=== PATIENT | male | born 1955 | race Caucasian/White ===

== ENCOUNTER 2020-02-17 14:10 | Outpatient (CLI) | payer BC, SELFPAY ==
--- NOTE | ~2020-02-17 | US_ITS ---
EXAMINATION: US arterial ankle brachial ind DATE: 02/17/2020 15:04 INDICATION: Paresthesias of the lower extremities. TECHNIQUE: Segmental pressures and plethysmographic and Doppler waveforms of the brachial and lower e xtremity arteries were obtained. COMPARISON: None. FINDINGS: Right and left brachial artery pressures of 115 mm Hg and 121 mm Hg, respectively, are concordant (no rmal difference <= 30 mmHg). The right ankle-brachial index (JORGE) is 1.35 (normal >= 0.9-1.0). The right great toe-brachial index (TBI) is 1.06 (normal >= 0.65). Arterial Doppler waveforms are biphasic with brisk systolic upstrokes at both the right posterior tibial and dorsalis pedis arteries. The left JORGE is 1.20. The left TBI is 0.90. Arterial Doppler waveforms are biphasic with brisk systol ic upstrokes at both the left posterior tibial and dorsalis pedis arteries. IMPRESSION: 1. No significant arterial occlusive disease to the lower limb with normal bilateral ABIs and TBIs Reviewed, dictated and finalized at location A. IMPRESSION: 1. No significant arterial occlusive disease to the lower limb with normal bila teral ABIs and TBIs
== END 2020-02-17 14:11 | disposition home or self-care (01) ==
PROVIDERS: PCP Internal Medicine; Visit Provider Internal Medicine
DX: R20.2 Paresthesia of skin (principal)
CPT/HCPCS: 93922

== ENCOUNTER 2020-04-10 09:41 | Outpatient (CLI) | payer BC, SELFPAY ==
--- NOTE | 2020-04-10 11:00 | NEURO_ITS ---
Patient Number: [id number] Impression: # Complains of numbness of feet. History of cervical surgery over 20 years ago. # Severe motor and sensory neuropathy with no responses obtained electrically. # Needle/EMG exam revealed no motor unit potentials in bilateral EDB; decreased motor unit potentials in higher muscles. No fibrillations or myotonia. # Clinical correlation recommended. Nerve Conduction Studies Anti Sensory Summary Table Stim Site NR Peak (ms) P-T Amp (?V) Site1 Site2 Delta-P (ms) Dist (cm) Williams (m/s) Left Sup Fibular Anti Sensory (Ant Lat Mall) NO RESPONSE 14 cm NR 14 cm Ant Lat Mall 16.0 Right Sup Fibular Anti Sensory (Ant Lat Mall) NO RESPONSE 14 cm NR 14 cm Ant Lat Mall 16.0 Left Sural Anti Sensory (Lat Mall) NO RESPONSE Calf NR Calf Lat Mall 16.0 Right Sural Anti Sensory (Lat Mall) NO RESPONSE Calf NR Calf Lat Mall 16.0 Motor Summary Table Stim Site NR Onset (ms) O-P Amp (mV) Site1 Site2 Delta-0 (ms) Dist (cm) [place] (m/s) Left Peroneal Motor (Vastus Med) NO RESPONSE Ankle NR Popit Ankle 0.0 Popit NR Right Peroneal Motor (Vastus Med) NO RESPONSE Ankle NR Popit Ankle 0.0 Popit NR Left Tibial Motor (Abd Frazier Brev) NO RESPONSE Ankle NR Knee NR Right Tibial Motor (Abd Frazier Brev) NO RESPONSE Ankle NR Knee Ankle 0.0 Knee NR F Wave Studies NR F-Lat (ms) L-R F-Lat (ms) Left Peroneal (Mrkrs) (EDB) DISPERSED RESPONSE NR Right Peroneal (Mrkrs) (EDB) NO RESPONSE NR Left Tibial (Mrkrs) (Abd Hallucis) DISPERSED RESPONSE NR Right Tibial (Mrkrs) (Abd Hallucis) NO RESPONSE NR EMG Side Muscle Nerve Root Ins Act Fibs Amp Dur Recrt Comment Right AntTibialis Dp Br Fibular L4-5 Nml Nml Nml Nml Nml Right Gastroc Tibial S1-2 Nml Nml Nml Nml Nml Right Fibularis Long Sup Br Fibular L5-S1 Nml Nml Nml Nml Nml Right Flex Dig Long Tibial L5-S2 Nml Nml Nml Nml Nml Right Ext Dig Brev Dp Br Fibular L5, S1 Nml Nml ------ ------ None Left AntTibialis Dp Br Fibular L4-5 Nml Nml Nml Nml Nml Left Gastroc Tibial S1-2 Nml Nml Nml Nml Nml Left Fibularis Long Sup Br Fibular L5-S1 Nml Nml Nml Nml Nml Left Flex Dig Long Tibial L5-S2 Nml Nml Nml Nml Nml Left Ext Dig Brev Dp Br Fibular L5, S1 Nml Nml ------ ------ None Right Ext Dig Long Dp Br Fibular L5-S1 Nml Nml Nml Nml Reduced Right PostTibialis Tibial L5, S1 Nml Nml Nml Nml Reduced Left Ext Dig Long Dp Br Fibular L5-S1 Nml Nml Nml Nml Reduced Left PostTibialis Tibial L5, S1 Nml Nml Nml Nml Reduced MTDD
== END 2020-04-10 09:42 | disposition home or self-care (01) ==
PROVIDERS: PCP Internal Medicine; Visit Provider Internal Medicine
DX: R20.2 Paresthesia of skin (principal)
CPT/HCPCS: 95886; 95910; 95911

== ENCOUNTER 2021-06-26 01:46 | Day surgery (SDC) | payer BC, SELFPAY ==
[2021-05-31 12:32] VITALS: BMI 29.7
--- NOTE | 2021-06-24 12:15 | PC.NURSE ---
SPOKE WITH PT REGARDING INTERVIEW DONE FOR CANCELED PROCEDURE ON 06/12/21. PT DENIES ANY CHANGES IN MEDS OR HEALTH. PT HAS BEEN FEELING GOOD AND WAS SCHED. FOR CARDIOLYTE STRESS TEST ON 06/16/2021, FOLLOW UP ECHO ON 06/21/2021. ZAINAB RECEIVED FROM DR. WILL'S OFFICE FOR COLONOSCOPY AND TO HOLD PLAVIX.
--- NOTE | 2021-06-25 12:57 | PM.HPGS ---
History of Present Illness History of Present Illness Consent: Risks, benefits, and alternatives have been discussed and questions answered. Patient agrees to proceed with procedure. Chief complaint: hx polyps, family hx colon CA Narrative: Edward Casas is a 65 year old male who has a family history of colon cancer. He is referred for colon cancer screening. He did have 1 polyp removed about 5 years ago Review of Systems Review of Systems: All systems reviewed & are unremarkable except as noted in HPI and below PMFSH Past Medical History Medical History CAD (coronary artery disease) HTN (hypertension) Hyperlipidemia LAURA (obstructive sleep apnea) Surgical History Surgical History History of coronary artery stent placement S/P cervical spinal fusion Social History Social History Smoking status: Never smoker Alcohol intake: current Drinks per week: 4 Alcohol use details: WINE Substance use: never Substance use type: does not use Living arrangements: with family Spiritual care concerns: No Meds Home Medications and Allergies Home Medications Medication Instructions Recorded Confirmed Type amlodipine 5 mg PO DAILY 05/31/21 06/26/21 History clopidogrel 75 mg PO DAILY 05/31/21 06/26/21 History escitalopram oxalate 20 mg PO DAILY 05/31/21 06/26/21 History hydroxyzine HCl 25 mg PO TID PRN 05/31/21 06/26/21 History rosuvastatin 40 mg PO DAILY 05/31/21 06/26/21 History Allergies Allergy/AdvReac Type Severity Reaction Status Date / Time No Known Allergies Allergy Unknown Verified 06/26/21 08:50 Exam Resp: Auscultation: clear to auscultation bilaterally Cardio: Rate: regular rate Rhythm: regular rhythm GI: GI Palp: Yes Soft to palpation and No Tenderness to palpation present (GI) Assessment and Plan Assessment and plan (1) Colon cancer screening: Code(s): Z12.11 - Encounter for screening for malignant neoplasm of colon Status: Acute Assessment and Plan: Colonoscopy with possible biopsy or polypectomy or cautery or injection of substances.
[2021-06-26 08:51] VITALS: BP 138/78; PULSE 70; RESP 20; TEMP 36.4; O2SAT 98
[2021-06-26] MEDS: LACTATED RINGERS 1,000 ML 150 ML IV CONT (08:53)
--- NOTE | 2021-06-26 09:14 | P.PNAN_ITS ---
Anes - Initial Pre Proc Eval Procedure: Operation Date: 06/26/21 10:15 Proposed Procedures p Screening Colonoscopy - Augustus Hodge MD Date/Time: 06/26/21 09:14 Surgeon: Augustus Hodge MD Pre Op Diagnosis: hx polyps, family hx colon CA Patient Data Age: 65 Gender: M Height: 1.91 m Weight: 104.6 kg Last Vital Signs Temp 36.4 C 06/26/21 08:51 Pulse 70 06/26/21 08:51 Resp 20 06/26/21 08:51 BP 138/78 06/26/21 08:51 Pulse Ox 98 06/26/21 08:51 Allergies Allergy/AdvReac Type Severity Reaction Status Date / Time No Known Allergies Allergy Unknown Verified 06/26/21 08:50 Home Medications Medication Instructions Recorded Confirmed Type amlodipine 5 mg PO DAILY 05/31/21 06/26/21 History clopidogrel 75 mg PO DAILY 05/31/21 06/26/21 History escitalopram oxalate 20 mg PO DAILY 05/31/21 06/26/21 History hydroxyzine HCl 25 mg PO TID PRN 05/31/21 06/26/21 History rosuvastatin 40 mg PO DAILY 05/31/21 06/26/21 History Patient hx anesthesia problems: none Family hx anesthesia problems: none Results Review: All pre-operative results and documents have been reviewed as part of the pre-operative evaluation. [facility] Past Medical History Medical History (Updated 06/26/21 @ 09:15 by Tavo Abad MD) CAD (coronary artery disease) HTN (hypertension) Hyperlipidemia LAURA (obstructive sleep apnea) Surgical History Surgical History (Updated 06/26/21 @ 09:18 by Tavo Abad MD) History of coronary artery stent placement S/P cervical spinal fusion Social History Social History Smoking status: Never smoker Alcohol intake: current Drinks per week: 4 Alcohol use details: WINE Substance use: never Substance use type: does not use Living arrangements: with family Spiritual care concerns: No Anes - Eval Final PreProcedure Day of Procedure 06/26/21 09:14 Patient weight: overweight Heart: regular rate and rhythm Lungs: clear to auscultation Airway: Mallampati scale class II Neurological: alert and oriented Last oral intake: >/= 8 hours ASA classification: III Anesthetic plan: proceed Anesthesia type and monitoring: general GIVS and standard monitoring Results Review: All pre-operative results and documents have been reviewed as part of the pre-operative evaluation. Informed Consent: The patient's anesthetic plan and its attendant risks and benefits were discussed with the patient/family/POA. Questions were solicited and answers provided to the satisfaction of the patient/family/POA.
[2021-06-26 10:20] VITALS: BP 120/81; PULSE 64; RESP 16; O2SAT 99
[2021-06-26 10:30] VITALS: BP 134/86; PULSE 66; RESP 18; O2SAT 99
[2021-06-26 10:40] VITALS: BP 136/92; PULSE 65; RESP 18; O2SAT 100
== END 2021-06-26 10:56 | disposition home or self-care (01) ==
PROVIDERS: PCP Internal Medicine; Visit Provider Internal Medicine Gastroenterology
PROC: 0DJD8ZZ Inspection of Lower Intestinal Tract, Via Natural or Artificial Opening Endoscopic (ICD-10-PCS; CPT 45378; principal; 2021-06-26 10:15)
DX: Z12.11 Encounter for screening for malignant neoplasm of colon (principal); Z86.010 Personal history of colon polyps; Z80.0 Family history of malignant neoplasm of digestive organs; I25.10 Atherosclerotic heart disease of native coronary artery without angina pectoris; I10 Essential (primary) hypertension; E78.5 Hyperlipidemia, unspecified; G47.33 Obstructive sleep apnea (adult) (pediatric); Z95.5 Presence of coronary angioplasty implant and graft; Z98.1 Arthrodesis status
CPT/HCPCS: 45378; J2704; J7120

== ENCOUNTER → 2021-10-07 08:16 | Outpatient (CLI) | payer BC, SELFPAY ==
--- NOTE | ~2021-10-07 | MR_ITS ---
EXAMINATION: MR lumbar spine wo con DATE: 10/07/2021 08:49 INDICATION: Left-sided sciatica. TECHNIQUE: Magnetic resonance imaging (MRI) of the lumbar spine was performed without intravenous con trast. Sequences included sagittal T2-weighted FSE, sagittal T2-weighted FS FSE, sagittal T1-weighted FSE, and axial T2-weighted FSE. COMPARISON: None FINDINGS: There is 3 mm anterolisthesis of L4 on L5. Vertebral body heights are normal. Intervertebra l disc heights are normal. The distal spinal cord signal intensity is normal. The conus medullaris is at T12. The following disc levels are specifically discussed: L1-L2: The disc is bulging and has an annular fissure. There is mild bilateral facet joint osteoarthr itis. There is mild bilateral neural foraminal stenosis. There is no central canal stenosis. L2-L3: The disc is mildly bulging. There is severe bilateral facet joint osteoarthritis. There is mil d bilateral neural foraminal stenosis. There is no central canal stenosis. L3-L4: The disc is bulging. There is severe bilateral facet joint osteoarthritis. There is mild right and moderate left neural foraminal stenosis. There is mild central canal stenosis. L4-L5: The disc is bulging with superimposed left central extrusion. There is severe bilateral facet joint osteoarthritis. There is moderate bilateral neural foraminal stenosis. There is moderate centra l canal stenosis. L5-S1: The disc does not extend beyond the endplate margin. There is severe right and moderate left f acet joint osteoarthritis. There is mild bilateral neural foraminal stenosis. There is no central can al stenosis. IMPRESSION: 1. Moderate lumbar spondylosis. Reviewed, dictated and finalized at location A.
== END ==
PROVIDERS: PCP Neurological Surgery; Visit Provider Internal Medicine
DX: M54.32 Sciatica, left side (principal); M47.896 Other spondylosis, lumbar region
CPT/HCPCS: 72148

== ENCOUNTER → 2021-10-31 13:51 | Outpatient (CLI) | payer BC, SELFPAY ==
--- NOTE | ~2021-10-31 | XR_ITS ---
EXAMINATION: XR lumbar spine 6V w bending DATE: 10/31/2021 14:56 INDICATION: Low back pain TECHNIQUE: Anteroposterior, lateral in neutral, flexion and extension, and bilateral oblique views of the lumbar spine, and cone-down lateral view of the lumbosacral junction were obtained. COMPARISON: MRI, 10/07/2021 FINDINGS: There are 3 mm of stable anterolisthesis of L4 on L5. There is no laxity with flexion or ex tension. The vertebral body heights are maintained. There is no fracture. The intervertebral disc spa ce heights are normal. There is moderate to severe facet osteoarthritis in the mid and lower lumbar s pine. Calcified atherosclerosis is noted. IMPRESSION: 1. Moderate lumbar spondylosis without acute findings or significant interval change. Reviewed, dictated and finalized at location F. IMPRESSION: 1. Moderate lumbar spondylosis without acute findings or significant interval alva estevez.
== END ==
PROVIDERS: PCP Internal Medicine; Visit Provider Neurological Surgery
DX: M47.896 Other spondylosis, lumbar region (principal)
CPT/HCPCS: 72114

== ENCOUNTER → 2023-07-07 08:15 | Outpatient (CLI) | payer BC, SELFPAY ==
--- NOTE | ~2023-07-07 | CT_ITS ---
EXAMINATION: CT sinus wo con DATE: 07/07/2023 08:30 INDICATION: Chronic sinusitis TECHNIQUE: Computed tomography (CT) of the paranasal sinuses was performed without intravenous contra st. The dose-length product was 412.97 mGy-cm. COMPARISON: None FINDINGS: There is mucosal thickening of the ethmoid, maxillary and sphenoid sinuses. No significant mucoperiosteal reaction. There are changes of surgical resection of the left ostiomeatal unit. No sig nificant nasal septal deviation. Small left mastoid effusion. IMPRESSION: 1. Mild sinusitis. Reviewed, dictated and finalized at location L. APPLICATION CLERK IMPRESSION: 1. Mild sinusitis.
== END ==
PROVIDERS: PCP Internal Medicine; Visit Provider Otolaryngology
DX: J32.9 Chronic sinusitis, unspecified (principal)
CPT/HCPCS: 70486

== ENCOUNTER 2024-11-24 10:07 | Outpatient (CLI) | payer BC, SELFPAY ==
--- NOTE | ~2024-11-24 | MR_ITS ---
MRI of the lumbar spine Clinical History: Left foot drop Technique: Axial T2-weighted images, and sagittal T1-weighted, T2-weighted, and and T2 fat-sat images were acquired. Following intravenous administration of 20 cc ProHance gadolinium, T1-weighted fat-sa t imaging was performed in the axial and sagittal planes. COMPARISON: 10/07/2021 Findings: No acute fracture seen. There is 8 mm anterolisthesis of L4 over L5. No bone marrow signal abnormality seen. At L1-L2, there is minimal disc bulge and moderate facet arthropathy. No central canal stenosis or ne ural foraminal narrowing. At L2-L3, there is no disc bulge or herniation. There is advanced facet arthropathy. No central canal stenosis or neural foraminal narrowing. At L3-L4, there is severe facet arthropathy with minimal disc bulge. No central canal stenosis. There is moderate to advanced left neural foraminal narrowing, and moderate right neural foraminal narrowi ng. At L4-L5, there is disc bulge/uncovering with severe facet arthropathy. No central canal stenosis. Th ere is moderate to severe bilateral neural foraminal narrowing. At L5-S1, there is moderate to advanced facet arthropathy. No central canal stenosis or neural forami nal narrowing. Paravertebral soft tissues are unremarkable. Possible prior posterior decompression at L4. No abnormal postcontrast enhancement identified. Impression: 8 mm anterolisthesis of L4 over L5, with severe degenerative spondylosis at this level. Suspected cecelia or posterior decompression at L4. Additional degenerative changes, as above, with bilateral significant neural foraminal narrowing at L 3-L4 in particular. Reviewed, dictated and finalized at [facility]. Impression: 8 mm anterolisthesis of L4 over L5, with severe degenerative spondylosis at thi s level. Suspected prior posterior decompression at L4. Additional degenerative changes, as above, with bilateral significant neural fo raminal narrowing at L3-L4 in particular.
--- OUTSIDE RECORDS SUMMARY | 2024-11-24 10:16 | XMS_ITS | Data Portability ---
Author Organization [facility] Address [address] [place] [address] Assessment No assessment recorded. Plan of Treatment Reminders Order Date Submit Date Provider Last Modified By Organization Details Last Modified Time Details Appointments None recorded. 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 sebree 145 2019 020 [facility] ([facility]), [address] [place], [address], 0 12:20:58 Referral None recorded. Procedures None recorded. Surgeries None recorded. Imaging None recorded. Medication Orders None recorded. Patient TargetsNo targets recorded. Patient Instructions Encounter Date Encounter Id Patient Instructions Last Modified By Organization Details Last Modified Time 02/29/2020 [id number] Reviewed the following recommendations: -Stay home and separate from others as much as possible. -Monitor your symptoms and seek medical attention for trouble breathing, persistent chest pain, confusion, or bluish lips or face. -Wear a mask if you must be around other people. -Wash your hands often for 20 seconds with soap and water and clean high-touch surfaces daily -You may discontinue home isolation if your symptoms are improving and it has been 10 days since symptoms started. [email or web address] Not available 02/29/2020 12:59:56 Reason for Referral None Reported. Results Created Date Observation Date Name Description Value Unit Range Abnormal Flag Note LastModifiedBy Organization Detail LastModifiedTime 02/29/20 20 02/29/2020 SARS CoV 2 RNA (COVI D-19) , QL, telegraph office manager-P CR, respi rator y speci men sars - cov - 2 PCR NEGATI VE mL Not Available [facility] (Lab) [address] [facility], [place], [address], 03/02/2020 12:20:58 02/29/20 20 02/29/2020 SARS CoV 2 RNA (COVI D-19) , QL, telegraph office manager-P CR, respi rator y speci men covidcom1 COMME NTS: This assay is desig kyler to detec t the RdRp and N genes of SARS- CoV-2 using nucle ic acid ampli ficat ion. A negat balta resul t does not precl ude the possi bilit y of 2019- nCoV infec tion since the adequ acy of sampl e colle ction and/o r low viral burde n may resul t in the prese nce of viral nucle ic acids level s below the maryjo tical sensi tivit y of this test metho d. Not Available [facility] (Lab) [address] [facility], [place], [address], 03/02/2020 12:20:58 02/29/20 20 02/29/2020 SARS CoV 2 RNA (COVI D-19) , QL, telegraph office manager-P CR, respi rator y speci men covidcom2 Posit balta resul ts are indic ative of the prese nce of SARS- CoV-2 RNA and do not rule out bacte rial infec tion or co-in fecti on with other virus es. Not Available [facility] (Lab) [address] [facility], [place], [address], 03/02/2020 12:20:58 02/29/2002/29/2020 SARS CoV 2 RNA (COVI D-19) , QL, telegraph office manager-P CR, respi rator y speci men covidcom3 Test resul ts shoul d be used along with other clini shavon obser vatio ns, patie nt histo ry, epide miolo gical infor matio n and labor atory data in makin g the diagn osis. Not Available [facility] (Lab) [address] [facility], [place], [address], 03/02/2020 12:20:58 02/29/20 20 02/29/2020 SARS CoV 2 RNA (COVI D-19) , QL, telegraph office manager-P CR, respi rator y speci men covidcom4 This test has recei christa FDA Emerg ency Use Autho rizat ion and has been verif ied by [facility] . This test is only autho rized for the durat ion of the decla ratio n and the circu mstan reji that exist to justi fy the autho rizat ion of the emerg ency use of in vitro diagn ostic tests for the detec tion of SARS- CoV-2 virus and/o r diagn osis of COVID -19 infec tion under secti on 564 (b) (1) of the Act. 11 U.S.C . 360bb b-3 (b) (1), unles s the autho rizat ion is termi nated or revok ed soone r. Not Available [facility] (Lab) [address] [place], [address], 03/02/2020 12:20:58 02/29/20 20 02/29/2020 SARS CoV 2 RNA (COVI D-19) , QL, telegraph office manager-P CR, respi rator y speci men covidcom5 [facility] is certi fied under CLIA- 88 as quali fied to perfo rm high compl exity testi ng. This testi ng was perfo rmed in the [facility] [place] [address] (CLIA Licen se #[id number] 5, CAP #[id number], AU-ID #[id number]). Not Available [facility] (Lab) [address] [place], [address], 03/02/2020 12:20:58 02/29/20 20 02/29/2020 SARS CoV 2 RNA (COVI D-19) , QL, telegraph office manager-P CR, respi rator y speci men covidcom6 Facts heet for healt hcare provi ders: https ://ww w.fda .gov/ media /1362 56/do wnloa d Facts heet for jimi nts: https ://ww [employer].fda .gov/ media /1362 57/do wnloa d Not Available [facility] (Lab) [address] [place], [address], 03/02/2020 12:20:58 Result Notes None recorded. Medical Equipment None Reported. Medications Name Sig Start Date Stop Date Status Note LastModified by Organization Details LastModified Time clopidogrel 75 mg tablet active Not Available Not Available No t Available amlodipine 5 mg tablet active Not Available Not Available Not Available diazepam 5 mg tablet active Not Available Not Available Not Available hydroxyzine pamoate 25 mg capsule active Not Available Not Available Not Available escitalopram 10 mg tablet active Not Available Not Available No t Available escitalopram 20 mg tablet active Not Available Not Available No t Available rosuvastatin 20 mg tablet active Not Available Not Available No t Available Boostrix Tdap 2.5 Lf unit-8 mcg-5 Lf/0.5 mL intramuscular syringe active Not Available Not Available Not Available Shingrix (PF) 50 mcg/0.5 mL intramuscular suspension, kit active Not Available Not Availa ble Not Available Vitals None Recorded Social History None recorded. Functional Status None recorded. Mental Status None recorded. Family History Nothing Reported. Medical History No medical history recorded. Past Encounters Encounter ID Performer Location Encounter Start Date Encounter Closed Date Diagnosis/Indication Diagnosis SNOMED-CT Code Diagnosis ICD10 Code Diagnosis Note [id number] MARGUERITE Mehta [address] [place] [address] 02/29/2020 10:38:09 03/01/2020 09:57:24 Suspected COVID-19 [id number] Z03.818 D/w pt the current pandemic of COVID-19 and call for social isolation in order to blunt the curve and minimize risk and spread. Encouraged patient and family to take restrictio ns seriously. They have verbalized understand ing of such. Viral syndrome [id number] B34.9 Health Concerns Section Related Observation LastModified by Organization Detai ls LastModified Time None Recorded Concern Status LastModified by Organization Details LastModified Time None Recorded Advance Directives Directive None Recorded Payers Encounter Date Sequence Insurance Name Policy Number Policy [place] Covered Member ID [place] Member ID Guarantor Name 02/29/2020 1 [facility] [id number] Edward Casas [id number] Edward Casas Notes Date Note Type Note Provider Name and Address Organization Details Recorded Time 02/29/2020 text/html COVID ScreeningReported bypatient.Associated Symptoms:shortness of breathCOVID-19 Symptoms November 2019Reported bypatient.COVID-19 Signs and Symptomscough resolved; cough same; fever resolved; shortness of breath resolved; chills resolved; repeated shaking with chills resolved; muscle pain resolved; headache resolved; sore throat resolved; loss of taste or smell resolved; vomiting or diarrhea resolved; fatigue resolved; anorexia resolved Contacts and Exposurereside in or traveled to areas where widespread community transmission has been reported Quality:dry cough Associated Symptoms:no sputum production; no wheezing; no runny nose; no vomiting; no diarrhea; no body aches; no nausea; no change in mental status; no hypotension; no tachycardia 64 yo male ,spoke via phone with C/O, SOB, lung pressure, congestion, potential exposure to pos COVID person recent travel. TREVON Corado NP Attn: Accounting,[address] [facility], [place], [address], [place] - [facility] 02/29/2020 13:00:28
--- OUTSIDE RECORDS SUMMARY | 2024-11-24 10:16 | XMS_ITS | Referral Summary ---
Author Organization [facility] Address [address] [place] [address] Care Team Providers Care Tobacco Sieve Operator Name Role Phone Tosha Herrera NP Primary Care Provider Arvind Livingston MD Unavailable [phone] Darren Tafoya MD Unavailable Encounters Date Type Department Care Team Description 08/31/2024 4:00 PM BLOOD BANK TECHNICIAN Office Visit [facility] Care at [address] [address] Kait Staley NP Sore throat (Primary Dx); Acute cough from Last 3 Months Allergies No known active allergies Medications aspirin (ASPIR-81) 81 mg tablet take 1 tablet (81MG) by oral route every day 0 07/24/19 12 Active Additional Information Patient not taking.Reported on 08/31/2024 ondansetron ODT (ZOFRAN-ODT) 4 mg disintegrating tablet Dissolve 1-2 tablets oral every 8 hours as needed for nausea or vomiting. 15 tablet 08/19/19 20 Active Additional Information Patient not taking.Reported on 08/31/2024 albuterol HFA (PROVENTIL HFA,VENTOLIN HFA,PROAIR HFA) 90 mcg/actuation inhaler INHALE 2 PUFFS EVERY 8 HOURS BY INHALATION ROUTE NEEDED FOR 10 DAYS. Active etodolac (LODINE) 400 mg tablet Take 1 tablet twice a day by oral route. Active HYDROcodone-acetam inophen (NORCO) 7.5-325 mg per tablet Take 1 tablet by mouth every 4 (four) hours as needed Active ketoconazole (NIZORAL) 2 % cream Active methylPREDNISolone acetate (DEPO-MedroL) 80 mg/mL injection Take 1 mL by injection route. 04/23/20 23 Active montelukast (SINGULAIR) 10 mg tablet Take 1 tablet (10 mg total) by mouth daily Active promethazine-DM (PROMETHAZINE-DM) 1.25-3 mg/mL syrup TAKE 5 ML EVERY 4 HOURS BY ORAL ROUTE FOR 10 DAYS. Active hydrOXYzine (VISTARIL) 25 mg capsule Take 1 capsule (25 mg total) by mouth 3 (three) times a day as needed for anxiety 30 capsule 02/11/20 24 Active amLODIPine (NORVASC) 5 mg tablet Take 1 tablet (5 mg total) by mouth daily 90 tablet 3 07/26/19 25 Active clopidogreL (PLAVIX) 75 mg tablet Take 1 tablet (75 mg total) by mouth daily 90 tablet 3 07/26/19 25 Active escitalopram (LEXAPRO) 20 mg tablet Take 1 tablet (20 mg total) by mouth daily 90 tablet 3 07/26/19 25 Active rosuvastatin (CRESTOR) 20 mg tablet Take 1 tablet (20 mg total) by mouth daily 90 tablet 3 07/26/19 25 Active lidocaine viscous (XYLOCAINE) 2 % solution Apply 10 mL to the mouth or throat every 6 (six) hours as needed (sore throat) May mix with 30 ml of Mylanta 100 mL 08/31/19 25 Active Active Problems Problem Noted Date Diagnosed Date Anxiety 11/06/2023 Assessment & Plan (07/26/2024 11:34 AM BLOOD BANK TECHNICIAN): Stable on Lexapro and Hydroxyzine prn. Assessment & Plan (11/06/2023 8:57 AM CDT): Stable on Lexapro and Hydroxyzine prn. Dyslipidemia 11/06/2023 Essential hypertension 11/06/2023 Assessment & Plan (07/26/2024 11:34 AM BLOOD BANK TECHNICIAN): BP normal in office, continuing Amlodipine 5 mg daily. Updated labs ordered. Injury of cervical spine 11/06/2023 Insomnia 11/06/2023 Sleep apnea 11/06/2023 Chronic maxillary sinusitis 07/15/2023 Chronic sphenoidal sinusitis 07/15/2023 Acute bronchitis 07/07/2023 Bilateral chronic serous otitis media 06/23/2023 Chronic cough 06/23/2023 Bronchitis 04/23/2023 COVID-19 09/23/2022 Chronic ethmoidal sinusitis 09/24/2021 Assessment & Plan (11/06/2023 8:57 AM CDT): Had surgery with Dr Livingston (ENT), symptoms seem to be improving. Hyperlipidemia 09/24/2021 Sciatica 09/24/2021 Coronary arteriosclerosis 09/20/2019 Overview (11/06/2023): stent Assessment & Plan (07/26/2024 11:34 AM BLOOD BANK TECHNICIAN): Has hx of stent, currently following with Dr Tafoya (cardio). Continuing Plavix, Crestor and follow up with Cardio Assessment & Plan (11/06/2023 8:56 AM CDT): Has hx of stent, currently following with Dr Tafoya (cardio). Continuing Plavix, Crestor and follow up with Cardio Immunizations Immunization Administration Dates Next Due Influenza, Quad, Adjuvantate d, Intramuscular 03/28/2023 Influenza, Quadrivalent, Hig h Dose, Preservative Free, Intrr 03/10/2022 Influenza, Quadrivalent, Spl it, Intramuscular 03/01/2020,05/17/2018 Influenza, Quadrivalent, Spl it, Preservative Free, Intramuscular 03/19/2021,06/21/2015 Influenza, Trivalent, High D ose, Split, Preservative Free, Intramuscular 04/02/2024 Influenza, Unspecified 04/24/2014 Pfizer SARS-CoV-2 Monovalent Vaccination (12+ Yrs) PURPLE 06/23/2021,10/03/2020,09/11/2020 Pneumococcal Conjugate Pcv20 03/10/2022 Tdap 07/08/2022,02/06/2020 ZOSTER Recombinant 07/17/2019,03/24/2019 Zoster, unspecified 07/17/2019,03/24/2019 Social History Tobacco Use Types Packs/Day Years Used Date Smoking Tobacco: Never Smokeless Tobacco: Never Tobacco Cessation:Counseling Given: Not Answered Alcohol Use Standard Drinks/Week Comments Yes 3 (1 standard drink = 0.6 oz pur e alcohol) PHQ-2 Answer Date Recorded PHQ-2 Total Score (If total score is 3 or more points, staff should administer the PHQ-9) 0 07/26/2024 Sex and Gender Information Value Date Recorded Sex Assigned at Not on file Legal Sex Male 2:12 AM BLOOD BANK TECHNICIAN Gender Identity Not on file Sexual Orientation Not on file Last Filed Vital Signs Vital Sign Reading Time Taken Comments Blood Pressure 128/76 08/31/2024 3:51 PM BLOOD BANK TECHNICIAN Pulse 80 08/31/2024 3:51 PM BLOOD BANK TECHNICIAN Temperature 36.7 C (98.1 F) 08/31/2024 3:51 PM BLOOD BANK TECHNICIAN Respiratory Rate 28 08/31/2024 3:51 PM BLOOD BANK TECHNICIAN Oxygen Saturation 98% 08/31/2024 3:51 PM BLOOD BANK TECHNICIAN Inhaled Oxygen Concentration - - Weight 114.3 kg (252 lb) 08/31/2024 3:51 PM BLOOD BANK TECHNICIAN Height 190.5 cm (6' 3 ) 07/26/2024 11:03 AM BLOOD BANK TECHNICIAN Body Mass Index 31.5 07/26/2024 11:03 AM BLOOD BANK TECHNICIAN Plan of Treatment Not on file Medical Devices Implanted Type Area Actuarial Mathematician Device Identifier Shelf Expiration Date Model / Serial / Lot [employer] [id number] System Coronary Stent Xience Janey Everolimus L15 Mm Od3 Mm Rapid Exchange - [id number] Implanted:Qty: 1 on 05/05/2019 by Darren Tafoya MD at [facility] [employer] 02/02/2020 [id number] / [id number] [employer] [id number] Device Closure Angio-Seal Vip Bondek-Plus Polyglyd L70 Cm Od6 Fr Odsec.035 In Vascular - [id number] Implanted:Qty: 1 on 05/05/2019 by Darren Tafoya MD at [facility] [employer] 11/10/2019 [id number] / / [id number] Procedures Procedure Name Priority Date/Time Associated Diagnosis Comments POC INFLUENZA A/B, COVID-19 ANTIGEN Routine 08/31/2024 4:12 PM BLOOD BANK TECHNICIAN Sore throat POCT RAPID STREP Routine 08/31/2024 3:54 PM BLOOD BANK TECHNICIAN Sore throat HEPATITIS C ANTIBODY Routine 11/06/2023 8:58 AM CDT Encounter for hepatitis C screening test for low risk patient PSA SCREEN Routine 11/06/2023 8:58 AM CDT Screening PSA (prostate specific antigen) from Last 3 Months or Most Recently Relevant to Health Maintenance Results * POC Influenza A/B, COVID-19 antigen (08/31/2024 4:12 PM BLOOD BANK TECHNICIAN) Influenza A Ag, POC Negative Negative [facility] Influenza B Ag, POC Negative Negative [facility] COVID-19 Ag POC Presumptive Negative Presumptive Negative, Invalid [facility] Nasal 08/31/2024 4:12 PM BLOOD BANK TECHNICIAN Kait Staley NP POINT OF CARE TEST ORDERAB LES Final Result Performing Organization Address City/State/[facility] Co de Phone Number [facility] [address] [place] [address] * POCT rapid strep A (08/31/2024 3:54 PM BLOOD BANK TECHNICIAN) Pathologist [facility] Rapid Strep A, POC Negative Negative Swab 08/31/2024 3:54 PM BLOOD BANK TECHNICIAN Kait Staley NP POINT OF CARE TEST ORDERAB LES Final Result * PSA screen (11/06/2023 8:58 AM CDT) PSA-Total 3.19 <=5.40 ng/mL Comment: Interpretive Data AGE SEX REFERENCE INTERVAL 0 minutes-150 years Female None 0 minutes-49 years Male None 50-59 years Male 0-3.90 60-69 years Male 0-5.40 70-79 years Male 0-6.20 80-150 years Male 0-6.20 The Savita PSA Total assay procedure was used. Results from different manufacturers or methods may not be comparable. Serial testing should be performed using the same method. Current interpretive data last revised 21. Blood 11/06/2023 8:58 AM CDT 11/06/2023 1:57 PM CDT us Tosha Herrera NP LAB BLOOD ORDERABLES Final Resul t Performing Organization Address [facility] de Phone Number [facility] [address] [place] [address] * Hepatitis C antibody Blood (11/06/2023 8:58 AM CDT) Hep C Ab Nonreactive Nonreactive Comment: Interpretive Data Nonreactive: Antibodies to HCV not detected. Does NOT exclude the possibility of recent exposure to HCV. Equivocal: Equivocal for HCV antibodies. Supplemental molecular testing will be automatically performed to determine infection status in accordance with current CDC screening recommendations. Reactive: Positive for HCV antibodies. This may represent current or past HCV infection. Supplemental molecular testing will be automatically performed to determine current infection status in accordance with current CDC screening recommendations. Interpretive data was last revised on 2019. Blood 11/06/2023 8:58 AM CDT 11/06/2023 1:57 PM CDT us Tosha Herrera NP LAB MICROBIOLOGY - GENERAL ORDER LIBBY Edited Result - Final Performing Organization Address [facility] de Phone Number [facility] [address] [facility] [place] [address] from Last 3 Months or Most Recently Relevant to Health Maintenance Insurance [employer] ACCESS ANTHEM ACCESS Advance Directives For more information, please contact: [phone] * Full Code (Latest Code Status on File) Date Activated Date Inactivated Comments 05/05/2019 9:40 AM 05/06/2019 3:28 PM Care Teams Tobacco Sieve Operator Relationship Specialty Start Date End Date Tosha Herrera NP [address] [facility] [address] [place] [address] PCP - General Family Medicine 11/06/23 Arvind Livingston MD [address] [place] [address] Consulting Physician Otolaryngology 11/06/23 [place] [address] [place] [address] Consulting Physician Cardiovascular Disease 11/06/23
--- OUTSIDE RECORDS SUMMARY | 2024-11-24 10:16 | XMS_ITS | Clinical Summary ---
Author Organization [facility] Address [address] [place] [address] Care Team Providers Care Supervisor Of Communications Name Role Phone Unavailable Primary Care Provider Unavailabl e Social History Tobacco Use Types Packs/Day Years Used Date Smoking Tobacco: Never Assessed Sex and Gender Information Value Date Recorded Sex Assigned at Not on file Legal Sex Male 11:36 AM CDT Gender Identity Not on file Sexual Orientation Not on file Plan of Treatment Health Maintenance Due Date Last Done Comments Pre-Diabetes and Diabetes Screening 1955 COLORECTAL SCREENING 2001 Colorectal Cancer Screening 2001 FIT-DNA Q 3 years 2001 FIT/FOBT Q 1 year 2001 Flex Sig/CT Colonography Q 5 years 2001 COVID-19 Vaccine (2023-2 5 season) 2024 06/23/2021, 10/03/2020, 09/11/2020 RSV VACCINE (60+ or ) (1 - 1-dose 75+ series) 12/09/2031 DTAP/TDAP/TD VACCINES (3 - T d or Tdap) 07/08/2032 07/08/2022, 02/06/2020 ZOSTER VACCINE Completed 07/17/2019, 03/24/2019 PNEUMOCOCCAL VACCINE 50+ YEARS Completed 03/10/2022 INFLUENZA VACCINE Completed 04/02/2024, , 03/10/2022, Additional history exists Insurance [facility] BLUE ACCESS CHOICE [facility]
--- OUTSIDE RECORDS SUMMARY | 2024-11-24 10:16 | XMS_ITS | Clinical Summary ---
Author Organization [facility] Address [address] [place] [address] Care Team Providers Care Director Of Pupil Personnel Program Name Role Phone Tosha Herrera NP Primary Care Provider [phone] Arvind Livingston MD Unavailable [phone] Darren Tafoya MD Unavailable Allergies No known active allergies Medications aspirin [...] 11/06/2023 Assessment & Plan (07/26/2024 11:34 AM SALES STRATEGY MANAGER): Stable on Lexapro and Hydroxyzine prn. Assessment & Plan (11/06/2023 8:57 AM CDT): Stable on Lexapro and Hydroxyzine prn. Dyslipidemia 11/06/2023 Essential hypertension 11/06/2023 Assessment & Plan (07/26/2024 11:34 AM SALES STRATEGY MANAGER): BP normal in office, continuing Amlodipine 5 [...] stent Assessment & Plan (07/26/2024 11:34 AM SALES STRATEGY MANAGER): Has hx of stent, currently following with Dr Tafoya (cardio). Continuing Plavix, Crestor and follow up with Cardio Assessment & Plan (11/06/2023 8:56 AM CDT): Has hx of stent, currently following with Dr Tafoya (cardio). Continuing Plavix, Crestor and follow up with Cardio Encounters Date Type Department Care Team Description 08/31/2024 4:00 PM SALES STRATEGY MANAGER Office Visit [facility] at [address] [address] Kait Staley, MARGUERITE Sore throat (Primary Dx); Acute cough from Last 3 Months Immunizations Immunization Administration Dates Next Due Influenza, [...] 07/08/2022,02/06/2020 ZOSTER Recombinant 07/17/2019,03/24/2019 Zoster, unspecified 07/17/2019,03/24/2019 Surgical History Surgery Date Site/Laterality Comments OTHER SURGICAL HISTORY C3-C7 spinal herniated disk: surgery SPINE SURGERY VASECTOMY SINUS SURGERY CARDIAC STENT PLACEMENT 3-4 years ago Medical History Medical History Date Comments Hx Other Medical 2007 C3-C7 spinal he rniated disk Hypertension Hypertension Anxiety disorder Anxiety Sleep apnea Hyperlipidemia GERD (gastroesophageal reflux disease) Coronary artery disease Hyperlipidemia Family History Medical History Relation Name Comments Coronary artery disease Father Alicia sanchez artery disease; /Coronary artery disease, premature; Cause of : Coronary artery disease, premature Other Mother Cancer -rectal; Cause of : Cancer -rectak Relation Name Status Comments Father (Age 55) Mother Social History Tobacco Use Types Packs/Day Years [...] on file Legal Sex Male 2:12 AM SALES STRATEGY MANAGER Gender Identity Not on file Sexual Orientation Not on file Obstetrics History Last Filed Vital Signs Vital Sign Reading Time Taken Comments Blood Pressure 128/76 08/31/2024 3:51 PM SALES STRATEGY MANAGER Pulse 80 08/31/2024 3:51 PM SALES STRATEGY MANAGER Temperature 36.7 C (98.1 F) 08/31/2024 3:51 PM SALES STRATEGY MANAGER Respiratory Rate 28 08/31/2024 3:51 PM SALES STRATEGY MANAGER Oxygen Saturation 98% 08/31/2024 3:51 PM SALES STRATEGY MANAGER Inhaled Oxygen Concentration - - Weight 114.3 kg (252 lb) 08/31/2024 3:51 PM SALES STRATEGY MANAGER Height 190.5 cm (6' 3 ) 07/26/2024 11:03 AM SALES STRATEGY MANAGER Body Mass Index 31.5 07/26/2024 11:03 AM SALES STRATEGY MANAGER Plan of Treatment Health Maintenance Due Date Last Done Comments Hepatitis B Screening 1973 Covid-19 Vaccine (2023-2 5 season) 2024 04/02/2024, 03/28/2023, 05/31/2022, Additional history exists Well Visit 65+ 11/05/2024 11/06/2023 Depression Screening 07/26/2025 07/26/2024, 11/06/19 24 Fall Risk Assessment 07/26/2025 07/26/2024, 11/06/19 Prostate Cancer Screening-PSA 11/05/2025 11/06/2023 Colon Cancer Screening-Colonoscopy 11/05/20262021 DTaP/Tdap/Td Vaccine (3 - Td or Tdap) 07/08/2032 07/08/2022, 02/06/2020 Zoster Vaccine Completed 07/17/2019, 11/2019, 03/24/2019, Additional history exists Pneumococcal vaccine 65+ Completed 03/10/2022 Hepatitis C Screening Completed 11/06/2023 Influenza Vaccine Completed 04/02/2024, , 03/10/2022, Additional history exists Medical Devices Implanted Type Area Tool Supervisor Device Identifier Shelf Expiration Date Model / Serial / Lot [employer] [id number] System Coronary Stent Xience Janey Everolimus L15 Mm Od3 Mm Rapid Exchange - [id number] Implanted:Qty: 1 on 05/05/2019 by Darren Tafoya MD at [facility] [employer] 02/02/2020 [id number] Device Closure Angio-Seal Vip Bondek-Plus Polyglyd L70 Cm Od6 Fr Odsec.035 In Vascular - [id number] Implanted:Qty: 1 on 05/05/2019 by Darren Tafoya MD at [facility] [employer] 11/10/2019 [id number] / / [id number] Procedures Procedure Name Priority Date/Time Associated Diagnosis Comments POC INFLUENZA A/B, COVID-19 ANTIGEN Routine 08/31/2024 4:12 PM SALES STRATEGY MANAGER Sore throat POCT RAPID STREP Routine 08/31/2024 3:54 PM SALES STRATEGY MANAGER Sore throat HEPATITIS C ANTIBODY Routine 11/06/2023 8:58 AM CDT Encounter for hepatitis C screening test for low risk patient PSA SCREEN Routine 11/06/2023 8:58 AM CDT Screening PSA (prostate specific antigen) from Last 3 Months or Most Recently Relevant to Health Maintenance Results * POC Influenza A/B, COVID-19 antigen (08/31/2024 4:12 PM SALES STRATEGY MANAGER) Influenza A Ag, POC Negative Negative [facility] Influenza B Ag, POC Negative Negative [facility] COVID-19 Ag POC Presumptive Negative Presumptive Negative, Invalid [facility] Nasal 08/31/2024 4:12 PM SALES STRATEGY MANAGER Kait Staley NP POINT OF CARE TEST ORDERAB LES Final Result Performing Organization Address [facility] Co de Phone Number [facility] [address] [place] [address] * POCT rapid strep A (08/31/2024 3:54 PM SALES STRATEGY MANAGER) Pathologist [facility] Rapid Strep A, POC Negative Negative Swab 08/31/2024 3:54 PM SALES STRATEGY MANAGER Kait Staley NP POINT OF CARE TEST ORDERAB LES Final Result * PSA screen (11/06/2023 8:58 AM CDT) Pathologist [facility] PSA-Total 3.19 <=5.40 ng/mL Comment: Interpretive Data [...] 8:58 AM CDT 11/06/2023 1:57 PM CDT Tosha Herrera CHANGE OVER LAB BLOOD ORDERABLES Final Resul t [facility] [address] [place] [address] * Hepatitis C antibody Blood (11/06/2023 8:58 [...] 8:58 AM CDT 11/06/2023 1:57 PM CDT Tosha Herrera NP LAB MICROBIOLOGY - GENERAL ORDER LIBBY Edited Result - Final [facility] [address] Department [place] [address] from Last 3 Months or Most Recently Relevant to Health Maintenance Insurance [employer] ACCESS ANTHEM ACCESS Advance Directives For more information, please contact: [phone] * Full Code (Latest Code Status on File) Date Activated Date Inactivated Comments 05/05/2019 9:40 AM 05/06/2019 3:28 PM Care Teams Director Of Pupil Personnel Program Relationship Specialty Start Date End Date Tosha Herrera NP [address] [facility] [address] [place], [place] [id number] PCP - General Family Medicine 11/06/23 Arvind Livingston MD [address] [place] [address] Consulting Physician Otolaryngology 11/06/23 [place] [address] [facility] [address] [place] [address] Consulting Physician Cardiovascular Disease 11/06/23
--- OUTSIDE RECORDS SUMMARY | 2024-11-24 10:17 | XMS_ITS | Clinical Summary ---
Author Organization [facility] Address [address] [place] [place] [address] Care Team Providers Care General Farmer Name Role Phone Unavailable Primary Care Provider Unavailabl e Source Comments [facility],non-owned Affiliates and Associated Physician Practices is amultiple site organization consisting of ambulatory clinics and hospital sitesin [place], [place], [place] and [place]. This disclosure is being madepursuant to the Care Everywhere program and may not contain all information available regarding this patient. Last updated 18.[facility] [employer] Social History Tobacco Use Types Packs/Day Years Used Date Smoking Tobacco: Never Assessed Sex and Gender Information Value Date Recorded Sex Assigned at Not on file Legal Sex Male 6:35 AM BUFFING WHEEL FORMER AUTOMATIC Gender Identity Not on file Sexual Orientation Not on file Last Filed Vital Signs Vital Sign Reading Time Taken Comments Blood Pressure 122/84 02/12/2017 8:40 AM CDT Pulse 73 02/12/2017 8:40 AM CDT Temperature 36.4 C (97.6 F) 02/03/2017 7:10 PM CDT Respiratory Rate 12 02/03/2017 8:30 PM CDT Oxygen Saturation 93% 02/03/2017 8:30 PM CDT Inhaled Oxygen Concentration - - Weight 98.4 kg (217 lb) 02/12/2017 8:40 AM CDT Height 190.5 cm (6' 3 ) 02/12/2017 8:40 AM CDT Body Mass Index 27.12 02/12/2017 8:40 AM CDT Plan of Treatment Health Maintenance Due Date Last Done Comments COLOGUARD (AGES 45-75) - COL ON CA SCREENING 1956 COLON MONITORING 1956 COLONOSCOPY - COLON CA SCREENING 1956 CT COLONOGRAPHY - COLON CA SCREENING 1955 Colorectal Cancer Screening 1955 FIT - COLON CA SCREENING 1956 FLEX SIG - COLON CA SCREENING 1956 LIPID TESTING 1955 HEPATITIS C SCREENING 12/04/1974 DTAP/TDAP/TD VACCINES (1 - Tdap) 12/09/1975 PNEUMOCOCCAL VACCINE 50+ (1 of 1 - PCV) 2006 ZOSTER VACCINE (1 of 2) 2006 COVID-19 VACCINE (1 - 2023-2 5 season) 2024 DEPRESSION SCREENING 07/13/2024 INFLUENZA VACCINE (Season Ended) 2025 Respiratory Syncytial Virus (RSV) Vaccine Pt: or over 60 yrs (1 - 1-dose 75+ series) 12/09/2031 HEPATITIS B VACCINE Aged Out No longe r eligible based on patient's age to complete this topic HIB VACCINE Aged Out No longer eligi ble based on patient's age to complete this topic HPV VACCINE Aged Out No longer eligi ble based on patient's age to complete this topic MENINGOCOCCAL (Group B) VACC INE SHARED DECISION-MAKING Aged Out No longer eligibl e based on patient's age to complete this topic MENINGOCOCCAL GROUPS A/C/Y/W VACCINE Aged Out No longer eligible b ased on patient's age to complete this topic
--- OUTSIDE RECORDS SUMMARY | 2024-11-24 10:17 | XMS_ITS | Data Portability ---
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 split sleep study 05/23/18 sleep onset = 32 minutes, REM onset = 86 minutes, AHI = 41, supine AHI = 69, Respironics small DreamWear gel nasal pillows @ 12 cmH2O, PLMI = 21 Elevation in periodic limb movement index may be contributed by escitalopram and hydroxyzine. Non-pharmacologic therapy options for periodic limb movement disorder include avoidance of aggravating drugs and substances, mental alerting activities, short daily hemodialysis for patients in renal failure, exercise, leg massage, stretching calf muscles, use of a weighted blanket and applied heat. Patient will cut down on alcohol consumption and caffeine intake. We will check BUN, Creatinine, Vitamin E, Vitamin B12, RBC folate, Iron, TIBC, Ferritin, ESR, Magnesium, Hgb and Hct levels. PAP compliance downloaded and interpreted x 20 minutes. Data reviewed and explained to the patient. Average apnea/hypopnea index (AHI) is 3.5. Patient used PAP > 4 hours 79% of the time. PAP is set at 12 cmH2O. PAP will be reset at 6-12 cmH2O. Oxygen supplementation: none Keep ramp start @ 6 cmH2O. Keep ramp duration @ 15 minutes. Keep EPR +2. Keep humidifier level @ 4. Patient is benefiting from PAP therapy. Encouraged patient to maintain PAP use more than 70% of the time. Statement of PAP use and benefits will be sent to the home care store. Educated the patient on problems and solutions associated with positive airway pressure (PAP) use. Difficulty tolerating pressure, mask leaks, intolerance of interface, nasal congestion, claustrophobic response, dry mouth, and unintentional mask removal during sleep were covered. Patient has some difficulty tolerating pressure. Patient is advised to practice wearing PAP daily while awake, lower pressure with or without sleeping on sides, activate PAP ramp feature, have blower checked to make sure pressure is set as prescribed and return to sleep center for consideration of auto-adjusting PAP therapy. Patient's mask leaks air. We will ensure the mask is situated properly. Patient can wear protective eye covering during sleep, and the mask can be resized. Patient experiences nasal congestion. Patient will use nasal saline spray before starting PAP, use heated PAP humidifier, clean/air dry humidifier reservoir daily, use nasal steroid spray, use ipratropium bromide nasal spray if rhinitis/rhinorrhe a is present or obtain an oronasal/oral interface. Dry mouth is a normal occurrence for people who just start out on PAP therapy because they are not used to air blowing in to the throat to hold open. Dry mouth is exacerbated for people who wear nasal PAP mask and whose jaw drops open during sleep. Not only does this create a much less efficient therapy because of leakage, it also causes dry mouth. There are a couple solutions to help prevent this type of problem. A simple solution would be to wear a chinstrap which essentially holds the jaw in place. A second solution would be a switch to a full face mask which covers both the nose and mouth. Although this is another easy solution, using a full face mask for some could seem claustrophobic or confining. There is no silver bullet solution as no single mask is right for everybody. Sometimes it takes a bit of experimentation to find a PAP mask which best meets the patient's needs as well as fits comfortably. Another tactic is to use a humidifier on your PAP machine. Most new PAP machines have integrated humidifiers. Humidification is leong when dealing with symptoms of dry mouth because the humidifier can supply both warm and room temperate air. Even a small amount of humidity in the airflow will help nasal passages to stay hydrated. If a person is using both a full face mask and a PAP machine with a heated humidifier and is still experiencing dry mouth, an ill-fitted PAP mask might be causing the problem. Leakage can be caused by a mask that is to large or small, the wrong style mask, the cushion is degraded or simply because the mask's straps aren't adjusted correctly. If leakage occurs, dry air from the room can leak in while humidification escapes. The result is reduced humidification within the circuit and resulting in dry throat and mouth. Finally, beyond factors involving the PAP machine and mask, dry mouth can also be caused or worsened by dehydration. The general recommendation to during eight 8 oz. glasses of water a day might be too little for many people. When people drink large amounts of coffee or other caffeine beverages, or sweat a lot during the day, making sure to rehydrate is an important part of PAP therapy. ResMed Air Sense 11 auto set unit with heated humidifier, supplies and Respironics small DreamWear gel nasal pillows at 6-12 cmH2O ordered. Further titration will be based on clinical response. Provided the patient with a list of local home care stores where positive airway pressure (PAP) units, accoutrement, and services are available. Home care store selection is based on patient's insurance carrier. Patient will setup an appointment with [facility] for supplies and pressure adjustments. A major predictor of success with use of PAP is follow-up with both the respiratory supplier and the treating physician. The respiratory supplier optimally will follow-up within two weeks after starting use while the treating physician optimally will follow-up within 90 days after starting therapy to assess adherence and effectiveness of treatment. The download results can show the treating physician information about adherence to treatment, residual AHI while on treatment and presence of large mask leakage. This information is especially helpful if the patient has residual sleepiness despite treatment. General information on sleep disordered breathing, evaluation of sleep disordered breathing, treatment with PAP therapy, and living with PAP therapy were covered. We discussed with the patient the impact of weight on: Sleep disordered breathing Hypertension Mixed hyperlipidemia Lumbar spondylosis We discussed with the patient the benefit of PAP therapy on: Sleep disordered breathing Anxiety Rhinitis PASP 31 mmHg Mild TR Mild RVE Hypertension Educated the patient on sleep hygiene measures. Relaxing rituals to rest easy, understanding foods with positive and negative impact on sleep, creating a peaceful sleep environment, timing of exercise, using herbal sleep aids, and practicing sleep-friendly meditation were covered. To determine how much sleep is needed, the patient will assess where (s)he falls on the spectrum, examine what lifestyle factors such as work schedules and stress are affecting the quality and quantity of sleep. In general, adults need 7-9 hours of sleep. Educated the patient regarding foods that promote sleep. These include but are not limited to cherries, bananas, toast, oatmeal, and warm milk. Educated the patient regarding foods and drinks to avoid before bedtime. These include but are not limited to aged cheese, chocolate, spicy foods, tomato-based sauces, soy, ginseng tea and processed meat. Advocated influenza vaccination annually and pneumonia vaccination PHILLIP. Advocated weight loss through diet and exercise. Patient's ideal body weight according to height and gender is up to 220 lbs. Encouraged patient to adjust caloric intake to maintain/achieve ideal body weight, emphasizing on fruits, vegetables, whole grains, and fat-free or low-fat products. These include lean meats, poultry, fish, beans, eggs, and nuts and foods that are low in saturated fats, trans-fats, cholesterol, salt (sodium), and glycemic index. Stressed the importance of regular exercise up to the patient's capacity limits. In this case, we recommend 20 min daily walking, 2 days a week of resistance training. Patient to monitor BP daily and bring records to PCP for further management. Follow-up: [email or web address] Not available 12/23/2023 09:06:06 01/13/2024 01/13/2024 Assessment: Rhinitis Early REM onset Severe OSAHS, AHI = 41 PLMD Iron deficiency Plan: The following were reviewed and explained to the patient: [facility] split sleep study 05/23/18 sleep onset = 32 minutes, REM onset = 86 minutes, AHI = 41, supine AHI = 69, Respironics small DreamWear gel nasal pillows @ 12 cmH2O, PLMI = 21 Ferritin 12/23/23 68 ng/mL Elevation in periodic limb movement index may be contributed by escitalopram and hydroxyzine. Non-pharmacologic therapy options for periodic limb movement disorder include avoidance of aggravating drugs and substances, mental alerting activities, short daily hemodialysis for patients in renal failure, exercise, leg massage, stretching calf muscles, use of a weighted blanket and applied heat. Patient will cut down on alcohol consumption and caffeine intake. BUN, Creatinine, Vitamin E, Vitamin B12, RBC folate, Iron, TIBC, ESR, Magnesium, Hgb and Hct levels are within normal limits. Patient will take FeSO4 325 mg + Vit C 500 mg daily to keep the ferritin > 75 ng/ml. Check ferritin one week before return. We will hold off on dopaminergic therapy for now. PAP compliance downloaded and interpreted x 20 minutes. Data reviewed and explained to the patient. Average apnea/hypopnea index (AHI) is 4.9. Patient used PAP > 4 hours 60% of the time. PAP is set at 12 cmH2O. PAP will remain at 12 cmH2O until new CPAP arrives. Oxygen supplementation: none Keep ramp start @ 6 cmH2O. Keep ramp duration @ 15 minutes. Keep EPR +2 machine cage maker. Keep humidifier level @ 8. Patient is benefiting from PAP therapy. Encouraged patient to maintain PAP use more than 70% of the time. Statement of PAP use and benefits will be sent to the home care store. Educated the patient on problems and solutions associated with positive airway pressure (PAP) use. Difficulty tolerating pressure, mask leaks, intolerance of interface, nasal congestion, claustrophobic response, dry mouth, and unintentional mask removal during sleep were covered. Patient has some difficulty tolerating pressure. Patient is advised to practice wearing PAP daily while awake, lower pressure with or without sleeping on sides, activate PAP ramp feature, have blower checked to make sure pressure is set as prescribed and return to sleep center for consideration of auto-adjusting PAP therapy. Patient's mask leaks air. We will ensure the mask is situated properly. Patient can wear protective eye covering during sleep, and the mask can be resized. Patient experiences nasal congestion. Patient will use nasal saline spray before starting PAP, use heated PAP humidifier, clean/air dry humidifier reservoir daily, use nasal steroid spray, use ipratropium bromide nasal spray if rhinitis/rhinorrhe a is present or obtain an oronasal/oral interface. Dry mouth is a normal occurrence for people who just start out on PAP therapy because they are not used to air blowing in to the throat to hold open. Dry mouth is exacerbated for people who wear nasal PAP mask and whose jaw drops open during sleep. Not only does this create a much less efficient therapy because of leakage, it also causes dry mouth. There are a couple solutions to help prevent this type of problem. A simple solution would be to wear a chinstrap which essentially holds the jaw in place. A second solution would be a switch to a full face mask which covers both the nose and mouth. Although this is another easy solution, using a full face mask for some could seem claustrophobic or confining. There is no silver bullet solution as no single mask is right for everybody. Sometimes it takes a bit of experimentation to find a PAP mask which best meets the patient's needs as well as fits comfortably. Another tactic is to use a humidifier on your PAP machine. Most new PAP machines have integrated humidifiers. Humidification is leong when dealing with symptoms of dry mouth because the humidifier can supply both warm and room temperate air. Even a small amount of humidity in the airflow will help nasal passages to stay hydrated. If a person is using both a full face mask and a PAP machine with a heated humidifier and is still experiencing dry mouth, an ill-fitted PAP mask might be causing the problem. Leakage can be caused by a mask that is to large or small, the wrong style mask, the cushion is degraded or simply because the mask's straps aren't adjusted correctly. If leakage occurs, dry air from the room can leak in while humidification escapes. The result is reduced humidification within the circuit and resulting in dry throat and mouth. Finally, beyond factors involving the PAP machine and mask, dry mouth can also be caused or worsened by dehydration. The general recommendation to during eight 8 oz. glasses of water a day might be too little for many people. When people drink large amounts of coffee or other caffeine beverages, or sweat a lot during the day, making sure to rehydrate is an important part of PAP therapy. ResMed Air Sense 11 auto set unit with heated humidifier, supplies and Respironics small DreamWear gel nasal pillows at 6-12 cmH2O ordered. Further titration will be based on clinical response. Provided the patient with a list of local home care stores where positive airway pressure (PAP) units, accoutrement, and services are available. Home care store selection is based on patient's insurance carrier. Patient will setup an appointment with [facility] for supplies and pressure adjustments. A major predictor of success with use of PAP is follow-up with both the respiratory supplier and the treating physician. The respiratory supplier optimally will follow-up within two weeks after starting use while the treating physician optimally will follow-up within 90 days after starting therapy to assess adherence and effectiveness of treatment. The download results can show the treating physician information about adherence to treatment, residual AHI while on treatment and presence of large mask leakage. This information is especially helpful if the patient has residual sleepiness despite treatment. General information on sleep disordered breathing, evaluation of sleep disordered breathing, treatment with PAP therapy, and living with PAP therapy were covered. We discussed with the patient the impact of weight on: Sleep disordered breathing Hypertension Mixed hyperlipidemia Lumbar spondylosis We discussed with the patient the benefit of PAP therapy on: Sleep disordered breathing Anxiety Rhinitis PASP 31 mmHg Mild TR Mild RVE Hypertension Educated the patient on sleep hygiene measures. Relaxing rituals to rest easy, understanding foods with positive and negative impact on sleep, creating a peaceful sleep environment, timing of exercise, using herbal sleep aids, and practicing sleep-friendly meditation were covered. To determine how much sleep is needed, the patient will assess where (s)he falls on the spectrum, examine what lifestyle factors such as work schedules and stress are affecting the quality and quantity of sleep. In general, adults need 7-9 hours of sleep. Educated the patient regarding foods that promote sleep. These include but are not limited to cherries, bananas, toast, oatmeal, and warm milk. Educated the patient regarding foods and drinks to avoid before bedtime. These include but are not limited to aged cheese, chocolate, spicy foods, tomato-based sauces, soy, ginseng tea and processed meat. Advocated influenza vaccination annually and pneumonia vaccination PHILLIP. Advocated weight loss through diet and exercise. Patient's ideal body weight according to height and gender is up to 220 lbs. Encouraged patient to adjust caloric intake to maintain/achieve ideal body weight, emphasizing on fruits, vegetables, whole grains, and fat-free or low-fat products. These include lean meats, poultry, fish, beans, eggs, and nuts and foods that are low in saturated fats, trans-fats, cholesterol, salt (sodium), and glycemic index. Stressed the importance of regular exercise up to the patient's capacity limits. In this case, we recommend 20 min daily walking, 2 days a week of resistance training. Patient to monitor BP daily and bring records to PCP for further management. Follow-up: 3 months, April 2024 [email or web address] Not available 01/13/2024 08:59:52 Plan of Treatment Reminders Order Date Submit Date Provider Last Modified By Organization Details Last Modified Time Details Appointments None recorded. Lab ferritin, serum or plasma 2023 024 [email or web address] [facility], [address] [place], [address], 5 10:14:27 iron + TIBC + ferritin, serum 2023 024 [facility], [address] [place], [address], 4 12:36:08 folate, RBC 2023 024 [facility], [address] [place], [address], 4 14:15:37 vitamin B12, serum [email or web address] [place] [address] Outpatient Lab, [address] [place], [address], 4 09:12:20 ESR (erythrocy te sedimentat ion rate), blood [email or web address] [place] [address] Outpatient Lab, [address] [place], [address], 4 09:12:20 hemoglobin + hematocrit , blood [email or web address] [place] [address] Outpatient Lab, [address] [place], [address], 4 09:12:21 bun (blood urea nitrogen), serum or plasma [email or web address] [place] [address] Outpatient Lab, [address] [place], [address], 4 09:12:21 creatinine , serum or plasma [email or web address] [place] [address] Outpatient Lab, [address] [place], [address], 4 09:12:21 magnesium, serum or plasma 2023 024 [email or web address] 2 [facility] - Outpatient Lab, [address] [place], [address], 4 09:12:21 vitamin E, serum 2023 024 [email or web address] 2 [facility] - Outpatient Lab, [address] [place], [address], 4 09:12:21 Referral None recorded. Procedures None recorded. Surgeries None recorded. Imaging None recorded. Medication Orders ferrous sulfate 325 mg (65 mg iron) tablet 2023 024 [id number] [address] [place], [address], 4 09:00:03 Vitamin C 500 mg tablet 2023 024 [facility]acy #3259, [address] [place], [address], 4 09:00:03 cefdinir 300 mg capsule 2023 [address]24 [address] [place], [address], 4 20:47:00 Medrol (Donell) 4 mg tablets in a dose pack [address]/Pharmacy #3259, [address] [place], [address], 4 20:47:19 Singulair 10 mg tablet 2023 024 [facility] #3259, [address] [place], [address], 11:40:38 Patient TargetsNo targets recorded. Patient Instructions Encounter Date Encounter Id Patient Instructions Last Modified By Organization Details Last Modified Time 12/31/2023 [id number] we discussed lef t Eustachian tube balloon dilatation but we will 1st do an audiogram [email or web address] Not available 12/31/2023 12:09:41 Reason for Referral None Reported. Results Created Date Observation Date Name Description Value Unit Range Abnormal Flag Note LastModifiedBy Organization Detail LastModifiedTime 09/14/19 24 01/25/2024 PATHO LOGY SERVI CE pathserv SEE COMMEN T See separ ate patho logy repor t. Not Available [facility] ([facility]) [address] [place], [address], 01/25/2024 05:04:23 12/22/19 24 05/23/2018 polys omnog jaec, split night No observ ation record ed. BARCODE Not Available 2023 17:08:04 01/07/20 24 01/07/2024 audio gram + tympa nogra m No observ ation record ed. [email or web address] [facility] [address] [facility] [address] , [place], [address], 01/11/2024 14:08:11 01/15/20 24 01/15/2024 audio gram + tympa nogra m No observ ation record ed. BARCODE [facility] [address], [place], [address], 01/15/2024 09:56:28 02/02/20 24 02/02/2024 MRI, inter nal audit ory canal , w/wo contr ast No observ ation record ed. [email or web address] [address], [place], [address], 02/03/2024 09:28:43 02/04/20 24 02/04/2024 MRI, inter nal audit ory canal , w/wo contr ast No observ ation record ed. [email or web address] [facility] [address], [place], [address], 02/19/2024 11:43:23 Result Notes None recorded. Problems Name Problem SNOMED Code Status Onset Date Resolution Date Notes Provider Name and Address Organization Details Recorded Time COVID-19 024623385 Active 2022 Not Available [facility] 3 04:42:11 Anxiety 35901973 Active Not Available [facility] 3 04:42:11 Coronary arterioscl erosis 56614840 Active 2019 stent Not Available [facility] 3 04:42:11 Hyperlipid emia 28665522 Active 2021 Not Available [facility] 3 04:42:11 Essential hypertensi on 07313469 Active Not Available [facility] 3 04:42:11 Chronic sinusitis 78554930 Active 2022 ALMA Carlton null, [facility] Remember The Member [facility] 3 11:25:56 Periodic limb movement disorder 798789432 Active 2023 Joey Bermudez MD [address], [address], [place], [address] , [facility] Remember The Member [facility] 4 09:03:25 Obstructiv e sleep apnea syndrome 18482529 Active 2023 Joey Bermudez MD [address], [address], [place], [address] , [facility] Remember The Member [facility] 4 09:04:39 Sensorineu ral hearing loss 93936050 Active 2023 Jeannie Mclaughlin RN null, [facility] Remember The Member [facility] 4 10:51:24 Dysfunctio n of left eustachian tube 4246834814449 106 Active 2023 Arvind Livingston MD [address], [address], [place], [address] , [facility] Remember The Member [facility] 4 12:09:19 Iron deficiency 71414742 Active 2023 Joey Bermudez MD [address], [address], [place], [address] , [facility] 4 08:57:10 Asymmetric al hearing loss 165988836 Active 2023 ALMA Carlton, [facility] 4 08:52:56 Allergic rhinitis 03737450 Active 2023 ALMA Carlton, [facility] 4 12:51:20 Dysfunctio n of bilateral eustachian tubes 2416768061903 100 Active 2023 Arvind Livingston MD [address] [facility], [facility] [address], [place], [address] , 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 Procedures Surgical History Date Name Laterality Status Provider Name and Address Organization Details Recorded Time 03/09/20 24 inflation of Eustachian tube using balloon completed Jeannie Mclaughlin RN [facility] 03/16/2024 09:17:45 11/05/19 24 ENDOSCOPY, NASAL/SINUS, W/ MAXILLARY ANTROSTOMY & TISSUE REMOVAL (SURG) completed Not Available [facility] 11/05/2023 16:30:22 09/14/19 24 nasal endoscopy with maxillary antrostomy completed ALMA Carlton [facility] 09/30/2023 08:44:52 09/14/19 24 ENDOSCOPY WITH REMOVAL OF SPHENOID SINUS TISSUE (SURG) completed Jeannie Mclaughlin RN [facility] 10/01/2023 08:39:02 06/26/20 21 Colonoscopy completed Not Available [facility] 09/11/19 23 03:08:08 07/05/20 19 Cardiac Stent Placement completed Not Available [facility] 09/10/2022 03:08:08 01/22/20 17 nasal polypectomy completed Not Available [facility] 03:08:08 Tonsillectomy completed Not Available [facility] 09/10/2022 03:08:08 Back Surgery [facility] 09[facility]10[facility] 03:08:08 Cataract Surgery completed Not Available [facility] 09/10/2022 03:08:08 Imaging Results Imaging Date Name Status LastModified by Organiz ation Details LastModified Time 05/23/2018 polysomnogram, split night completed [facility] Information not available 12/22/2023 17:08:04 01/07/2024 audiogram + tympanogram completed [email or web address] [facility] [address], [place], [address], 01/11/2024 14:08:11 01/15/2024 audiogram + tympanogram completed [facility] [address], [place], [address], 01/15/2024 09:56:28 02/02/2024 MRI, internal auditory canal, w/wo contrast completed [email or web address] [facility] [address] [place], [address], 02/03/2024 09:28:43 02/04/2024 MRI, internal auditory canal, w/wo contrast completed [email or web address] [facility] [address] [place], [address], 02/19/2024 11:43:23 Procedure Notes None recorded. Medical Equipment None Reported. Allergies No known drug allergies Medications Name Sig Start Date Stop Date Status Note LastModified by Organization Details LastModified Time amoxicill in 500 mg capsule TAKE 1 CAPSULE BY MOUTH 4 TIMES A DAY UNTIL GONE 10/02 completed Not Available Not Available Not Available promethaz ine-DM 6.25 mg-15 mg/5 mL oral syrup TAKE 5 ML EVERY 4 HOURS BY ORAL ROUTE FOR 10 DAYS. 12/21 completed Not Available Not Available Not Available clindamyc in HCl 300 mg capsule TAKE 1 CAPSULE BY MOUTH FOUR TIMES A DAY UNTIL GONE 07/10 completed Not Available Not Available Not Available Vitamin C 500 mg tablet TAKE 1 TABLET BY MOUTH EVERY DAY active Not Available Not Available No t Available triazolam 0.25 mg tablet BRING THE ENTIRE PRESCRIP TION WITH YOU TO THE DENTAL OFFICE 10/02 completed Not Available Not Available Not Available azithromy ashley 250 mg tablet TAKE 2 TABLETS BY MOUTH TODAY, THEN TAKE 1 TABLET DAILY FOR 4 DAYS DIRECTED 06/24 completed Not Available Not Available Not Available hydrocodo ne 5 mg-acetam inophen 325 mg tablet TAKE 2 TABS BY MOUTH EVERY 6 HOURS NEEDED FOR PAIN 05/20 completed Not Available Not Available Not Available ondansetr on HCl 4 mg tablet TAKE 1 T PO Q 8 H 09/19 completed Not Available Not Available Not Available prednison e 20 mg tablet PLEASE SEE ATTACHED FOR DETAILED DIRECTIO NS 06/24 completed Not Available Not Available Not Available penicilli n V potassium 500 mg tablet 09/25 completed Not Available Not Available Not Available acetamino phen 300 mg-codein e 30 mg tablet TAKE 1 TABLET BY MOUTH EVERY 4 TO 6 HOURS NEEDED FOR PAIN 07/10 completed Not Available Not Available Not Available clopidogr el 75 mg tablet TAKE 1 TABLET BY MOUTH EVERY DAY active Not Available Not Available No t Available amlodipin e 5 mg tablet TAKE ONE AND ONE-HALF TABLETS BY MOUTH DAILY active Not Available Not Available No t Available ciproflox acin 500 mg tablet TAKE 1 TABLET BY MOUTH TWICE A DAY FOR 10 DAYS 06/24 completed Not Available Not Available Not Available Depo-Medr ol 80 mg/mL suspensio n for injection Take 1 mL by injectio n route. 12/21 completed Not Available Not Available Not Available hydrocodo ne 7.5 mg-acetam inophen 325 mg tablet TAKE 1 TABLET BY MOUTH EVERY 4 HOURS NEEDED FOR PAIN active Not Available Not Available No t Available econazole nitrate 1 % topical cream 03/27 completed Not Available Not Available Not Available cephalexi n 500 mg capsule 02/21 completed Not Available Not Available Not Available ferrous sulfate 325 mg (65 mg iron) tablet TAKE 1 TABLET BY MOUTH EVERY DAY active Not Available Not Available No t Available etodolac 400 mg tablet Take 1 tablet twice a day by oral route. active Not Available Not Available No t Available monteluka st 10 mg tablet TAKE 1 TABLET BY MOUTH EVERY DAY active Not Available Not Available No t Available hydroxyzi ne HCl 25 mg tablet TAKE 1 TABLET TWICE A DAY BY ORAL ROUTE NEEDED. active Not Available Not Available No t Available hydrocodo ne 5 mg-acetam inophen 500 mg tablet 02/21 completed Not Available Not Available Not Available Viagra 100 mg tablet take 1 tablet 30mins before intercou rse no more then 1 in 24 hours 03/27 completed Not Available Not Available Not Available Exelderm 1 % topical cream 10/02 completed Not Available Not Available Not Available methylpre dnisolone 4 mg tablets in a dose pack TAKE 6 TABLETS ON DAY 1 DIRECTED ON PACKAGE AND DECREASE BY 1 TAB EACH DAY FOR A TOTAL OF 6 DAYS 12/21 completed Not Available Not Available Not Available albuterol sulfate HFA 90 mcg/actua tion aerosol inhaler INHALE 2 PUFFS EVERY 8 HOURS BY INHALATI ON ROUTE NEEDED FOR 10 DAYS. active Not Available Not Available No t Available ketoconaz ole 2 % topical cream 03/27 completed Not Available Not Available Not Available cefdinir 300 mg capsule TAKE 1 CAPSULE BY MOUTH EVERY 12 HOURS 12/21 completed Not Available Not Available Not Available fluticaso ne propionat e 50 mcg/actua tion nasal spray,ryan pension [place] 2 sprays every day by intranas al route at dinner. active Not Available Not Available No t Available diazepam 5 mg tablet TK 1 T PO QD PRN 04/04 completed Not Available Not Available Not Available amoxicill in 875 mg-potass ium clavulana te 125 mg tablet TAKE 1 TABLET BY MOUTH TWICE A DAY FOR 7 DAYS 01/12 completed Not Available Not Available Not Available hydroxyzi ne pamoate 25 mg capsule TK 1 T PO TID PRN FOR ANXIETY 09/19 completed Not Available Not Available Not Available escitalop jace 10 mg tablet TAKE 1 TABLET DAILY active Not Available Not Available No t Available escitalop jace 20 mg tablet TAKE 1 TABLET DAILY active Not Available Not Available No t Available Senna Plus 8.6 mg-50 mg tablet TAKE 1 TABLET BY MOUTH EVERY DAY 05/21 completed Not Available Not Available Not Available rosuvasta tin 20 mg tablet TAKE 1 TABLET DAILY active Not Available Not Available No t Available rosuvasta tin 40 mg tablet TAKE 1 TABLET BY MOUTH EVERY DAY 01/28 completed pt states he is only doing the 20mg didn't know anything about the 40mg never picked up the 40mg. Not Available Not Available Not Available Cialis 5 mg tablet as directed 0 06/21 completed Not Available Not Available Not Available Boostrix Tdap 2.5 Lf unit-8 mcg-5 Lf/0.5 mL intramusc ular syringe TO BE ADMINIST ERED BY PHARMACI [facility] FOR IMMUNIZA TION active Not Available Not Available No t Available Fluzone 2320-4084 45 mcg (15 mcg x 3)/0.5 mL intramusc ular suspensio n TO BE ADMINIST ERED BY PHARMACI ST FOR IMMUNIZA TION 02/21 completed Not Available Not Available Not Available Fluvirin 4096-9614 45 mcg (15 mcg x 3)/0.5 mL intramusc ular suspensio n INJECT 0.5 ML INTRAMUS CULARLY DIRECTED . active Not Available Not Available No t Available Shingrix (PF) 50 mcg/0.5 mL intramusc ular suspensio n, kit TO BE ADMINIST ERED BY PHARMACI ST FOR IMMUNIZA TION 09/19 completed Not Available Not Available Not Available Fluzone Quad (PF) 60 mcg (15 mcg x 4)/0.5 mL IM syringe TO BE ADMINIST ERED BY PHARMACI [facility] FOR IMMUNIZA TION active Not Available Not Available No t Available Paxlovid 300 mg (150 mg x 2)-100 mg tablets in a dose pack TAKE 3 TABLETS BY MOUTH TWICE A DAY FOR 5 DAYS 11/25 completed Not Available Not Available Not Available Vitals Date Recorded Body height Body mass index (BMI) Body weight Body temperature Provider Name and Address Organization Details Last Updated DateTime 10/01/2023 193.04 cm 29.2 kg/m2 920960.45 g 97.8 [degF] Jeannie Mclaughlin RN [place] [facility] 10/01/2023 10:44:29 Date Recorded Body height Body mass index (BMI) Body weight Heart rate Oxygen saturation Oxygen saturation in Arterial blood by Pulse oximetry Systolic blood pressure Diastolic blood pressure Provider Name and Address Organization Details Last Updated DateTime 193.04 cm 29.2 kg/m2 506418. 17 g 84 /min 97 % 97 % 120 mm[Hg] 70 mm[Hg] Isauro Chaparro CMA [facility] 08:32:09 Date Recorded Body temperature Heart rate Respiratory rate Provider Name and Address Organization Details Last Updated DateTime 12/23/2023 97.6 [degF] 84 /min 15 /min Joey Bermudez MD [address], [place], [address], [facility] 12/23/2023 08:40:28 Date Recorded Body height Body mass index (BMI) Body weight Provider Name and Address Organization Details Last Updated DateTime 12/31/2023 193.04 cm 28.8 kg/m2 386556.95 g Jeannie Mclaughlin RN [facility] 12/31/2023 10:31:05 Date Recorded Body height Body mass index (BMI) Body weight Heart rate Oxygen saturation Oxygen saturation in Arterial blood by Pulse oximetry Body temperature Systolic blood pressure Diastol [id number]|2024-11-24 10:17:00|2024-11-24 10:16:00|XMS_ITS|MARIA EUGENIAG HORACIO|External Medical Summaries|[id number]|" Clinical Summary Created on: November 24, 2024 Edward Casas : 1955 Sex: Male Author Organization [facility] Address [address] [place] [id number] 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 Role Phone Unavailable Primary Care Provider Unavailabl e Social History Tobacco Use Types Packs/Day Years Used Date Smoking Tobacco: Never Assessed Sex and Gender Information Value Date Recorded Sex Assigned at Not on file Legal Sex Male 9:36 AM CDT Gender Identity Not on file Sexual Orientation Not on file Plan of Treatment Health Maintenance Due Date Last Done Comments Colorectal Cancer Screening Colonoscopy (10 Years) 1955 Hepatitis C 1974 DTaP, Tdap and Td Vaccines ( 1 - Tdap) 12/09/1975 Pneumococcal Vaccine: 50+ Ye ars (1 of 1 - PCV) 2006 Zoster Vaccines (1 of 2) 2006 COVID-19 Vaccine (1 - 2023-2 5 season) 2024 RSV Immunization or 60+ Years (1 - 1-dose 75+ series) 12/09/2031 Meningococcal B Vaccine Aged Out No l onger eligible based on patient's age to complete this topic Meningococcal Vaccine Aged Out No lc arun eligible based on patient's age to complete this topic RSV Immunizations Under 20 Months Aged Out No longer eligible based on patient's age to complete this topic "
== END 2024-11-24 10:08 | disposition home or self-care (01) ==
PROVIDERS: PCP Nurse Practitioner Family; Visit Provider Neurological Surgery
DX: Z01.818 Encounter for other preprocedural examination (principal); M43.16 Spondylolisthesis, lumbar region; M47.816 Spondylosis without myelopathy or radiculopathy, lumbar region; M48.061 Spinal stenosis, lumbar region without neurogenic claudication; M21.372 Foot drop, left foot
CPT/HCPCS: 72158; A9579